=== PATIENT | male | born 1975 | race Caucasian/White ===

== ENCOUNTER 2021-01-29 07:32 | Emergency (ER) | payer SELFPAY ==
[~2021-01-29 07:32] MED LIST: BENTYL10 MG PO; PROTONIX40 MG PO; ZOFRAN8 MG PO
[2021-01-29 09:02] LABS: BASOPHIL 0.6 % (0-2); EOSINOPHIL 2.2 % (0-5); HGB 12.8 g/dl (13.2-18.0); LYMPHOCYTE 23.6 % (15-48); MCH 31.1 pg (25.0-31.0); MCV 97.3 fL (78.0-100.0); MONOCYTE 8.7 % (0-12); MPV 12.1 fL (6.0-9.5); NEUTROPHIL 64.7 % (41-80); NRBC 0; PLT 170 K/uL (150-400); RBC 4.11 M/uL (4.70-6.00); RDW 12.8 % (11.5-14.0); WBC 6.4 K/uL (4.0-10.5)
[2021-01-29 09:23] LABS: ALBUMIN 3.7 g/dL (3.4-5.0); BILIRUBIN - TOTAL 0.5 mg/dL (0.2-1.0); BUN/CREAT RATIO (CALC) 26.2 RATIO; CREATININE 0.84 mg/dL (0.67-1.17); GLOBULIN (CALCULATION) 2.6 g/dL; POTASSIUM 4.8 mmol/L (3.5-5.1); TOTAL PROTEIN 6.3 g/dL (6.4-8.2)
== END 2021-01-29 10:34 | disposition home or self-care (01) ==
LOC: FER 07:32
PROVIDERS: Internal Medicine
DX: I10 Essential (primary) hypertension (principal); R20.2 Paresthesia of skin; Z87.891 Personal history of nicotine dependence; Z79.899 Other long term (current) drug therapy
CPT/HCPCS: 36415; 80053; 84443; 84484; 85025; 93005; J7120

== ENCOUNTER 2021-02-16 08:43 | Emergency (ER) | payer OTHER ==
[2021-02-16] MEDS ORDERED: HYDROCODON-ACE1 EAC2 PO (09:57)
[2021-02-16] MEDS ORDERED: NAPROXEN500 MG PO (09:57)
[2021-02-16] MEDS ORDERED: CYCLOBENZAPRINE10 MG PO (09:58)
== END 2021-02-16 10:16 | disposition home or self-care (01) ==
LOC: FER 08:43
DX: R07.89 Other chest pain (principal); S22.42XD Multiple fractures of ribs, left side, subsequent encounter for fracture with routine healing; I10 Essential (primary) hypertension; W01.0XXA Fall on same level from slipping, tripping and stumbling without subsequent striking against object, initial encounter; Y92.89 Other specified places as the place of occurrence of the external cause; Y99.0 Civilian activity done for income or pay
CPT/HCPCS: 71101